=== PATIENT | male | born 1950 | race Two or more races ===

== ENCOUNTER 2017-05-24 18:36 | Inpatient (IN) | payer OTHER ==
[~2017-05-24] VITALS: Ht 165.1 cm; Wt 86.2 kg
[2017-05-24 20:50] VITALS: BP 155/63
--- NOTE | 2017-05-24 20:50 | NUR ---
RN OPENING NOTES: ADMITTED 66 YO MALE PATIENT DIRECT ADMIT FROM [facility] ED FOR PNEUMONIA. WHEN PATIENT ARRIVED VIA GURNEY PATIENT IS AWAKE AND ALERT ON O2 VIA NC AT 2LPM, TOLERATED WELL, NOT IN APPARENT DISTRESS. PER EMT'S REPORT PATIENT WAS SINUS RHYTHM BACK IN ED BUT WAS AFIB WHEN ASSESSED. CURRENTLY AFIB ON THE MONITOR WITH ERRATIC HEART RATE, WOULD GO FROM 115 UPTO 130 BUT DOES NOT SUSTAIN. NO COMPLAINTS OF CHEST PAIN AT THIS TIME NOR OTHER RELATED SYMPTOMS, ALTHOUGH PATIENT REPORTS TO BE SHORT OF BREATH DURING EXERTION. PATIENT DENIES OTHER HEART CONDITION EXCEPT FOR HYPERTENSION. PATIENT ON PERITONEAL DIALYSIS DAILY AND WOULD LIKE TO DO THIS NOW, PATIENT AND FAMILY INDEPENDENT WITH OWN PERITONEAL DIALYSIS SET UP. IV ACCESS ON RAC G18 INTACT. NO SKIN ISSUES NOTED EXCEPT FOR BILATERAL ARM MULTIPLE BRUISING. DR HESS COVERSTITCH BINDER INFORMED ABOUT PATIENT AND ABOUT CHANGE IN HEART RHYTHM. INFORMED MD PATIENT RECEIVED ROCEPHIN BACK IN [facility] ED. AWAITING FOR ADMITTING ORDERS AT THIS TIME. SAFETY MEASURES ENSURED. CONTINUOUSLY MONITORED PATIENT.
[2017-05-24 21:14] VITALS: BP 155/63
--- NOTE | 2017-05-24 21:30 | NUR ---
RN NOTES: PATIENT UNABLE TO RECALL ALL MEDS TAKEN AT HOME ONLY RECALLS A FEW AND DOES NOT RECALL DOSAGE. FOUND NOTED FROM [facility] VERIFIED BY AND FILED THEM ON MED RECON. ASKED IF SOMEONE CAN BRING THE LIST OF HIS MEDICATION IN THE MORNING TO MAKE SURE ALL MEDS ARE DOCUMENTED PROPERLY. PER SHE WILL TRY TO HAVE SOMEONE BRING IT. WHEN ASKED ABOUT ADVANCED DIRECTIVES VERBALIZES THAT HE PROBABLY WANTS INFORMATION ABOUT THIS. FOR FRONT END ARCHITECT CONSULT IN AM.
[2017-05-24] MEDS ORDERED: ATOR40TA PO (21:57)
[2017-05-24] MEDS ORDERED: ATENOLOL (21:57)
[2017-05-24] MEDS ORDERED: CLON0.1T PO (21:57)
[2017-05-24] MEDS ORDERED: DOXAZOSIN (21:57)
[2017-05-24] MEDS ORDERED: FOLI0.8T2 PO (21:57)
[2017-05-24] MEDS ORDERED: AMLODIPINE (21:57)
--- NOTE | 2017-05-24 22:00 | NUR ---
RN NOTES: NON ADMIN ZITHROMAX AND ROCEPHIN WAS GIVEN IN [facility] ED.
[2017-05-25] VITALS: BP 149/77
[2017-05-25] MEDS ORDERED: COLC0.6C PO (00:01)
[2017-05-25] MEDS ORDERED: ATEN50TA PO (00:01)
[2017-05-25] MEDS ORDERED: DOXA4TAB19 PO (00:01)
[2017-05-25] MEDS ORDERED: AMLO10TA4 PO (00:01)
[2017-05-25] MEDS ORDERED: ALLO100T PO (00:01)
--- NOTE | 2017-05-25 01:30 | NUR ---
RN NOTES: ASKED EPIC MD WAX BALL KNOCK OUT WORKER DR HESS REGARDING BLOOD CULTURES IF NECESSARY TO ORER PER PNEUMONIA CORE MEASURES. PER MD NO NEED PATIENT HAS BEEN AFEBRILE. NOTED. MD SEEN AND EXAMINED PATIENT.
[2017-05-25 04:00] VITALS: BP 145/73
[2017-05-25] MEDS ORDERED: CLON0.1T PO (06:24)
[2017-05-25] MEDS ORDERED: ALLO300T2 PO (06:25)
[2017-05-25 06:28] LABS: BASOPHILS % (AUTO) 0.3 % (0.0-2.0); HEMATOCRIT 27 % (39-51); HEMOGLOBIN 9.1 g/dL (13.5-17.5); LYMPHOCYTES # (AUTO) 0.8 /CMM (0.8-4.8); LYMPHOCYTES % (AUTO) 13.9 % (20.0-44.0); MEAN CORPUSCULAR HEMOGLOBIN 32 PG (26.0-33.0); MEAN CORPUSCULAR HGB CONC 33 g/dl (31.0-36.0); MEAN CORPUSCULAR VOLUME 95 fL (80-96); MONOCYTES # (AUTO) 0.1 /CMM (0.1-1.30); MONOCYTES % (AUTO) 1.7 % (2.0-12.0); NEUTROPHILS # (AUTO) 4.8 /CMM (1.8-8.9); NEUTROPHILS % (AUTO) 84.1 % (43.0-81.0); PLATELET COUNT (AUTO) 165 /CMM (150-450); RDW COEFFICIENT OF VARIATION 18.7 (11.5-15.0); RED BLOOD CELL COUNT(AUTO) 2.88 MIL/uL (4.5-6.0); WHITE BLOOD COUNT (AUTO) 5.7 K/uL (4.3-11.0)
--- NOTE | 2017-05-25 06:49 | NUR ---
RN CLOSING NOTES: PATIENT NOT IN DISTRESS ON BED, REMAINED AFIB CONTROLLED ON MONITOR. PERITONEAL DIALYSIS STILL ONGOING. PATIENT COMPLAINS OF CONSTIPATION FOR 3 DAYS. OFFERED MOM, BUT PATIENT WAS AFRAID IT MIGHT BE TOO STRONG FOR HIM (DESPITE EDUCATION) ALTHOUGH HE VERBALIZED THAT COLACE DOES NOT WORK FOR HIM, AND MENTIONED HE HAS USED MIRALAX AND WORKED WELL WITH HIM BEFORE. TO ENDORSE TO AM SHIFT RN TO OBTAIN ORDERS FROM AM MD DURING ROUNDS. NO COMPLAINTS OF PAIN. SAFETY MEASURES ENSURED ALTHOUGH PATIENT DOES NOT WANT OEN OF HIS UPPER SIDE RAILS DOWN IT IS IMPEDING HIS VIEW OF HIS PERITONEAL DIALYSIS ON HIS LEFT. PATIENT VERY ALERT AND INDEPENDENT, SAYS HE'S GOING TO BE FINE DESPITE INSTRUCTIONS FOR SAFETY MEASURES. ENDORSED TO AM SHIFT RN.
[2017-05-25 06:51] LABS: THYROID STIMULATING HORMONE 1.134 uIU/mL (0.358-3.74)
[2017-05-25 06:56] LABS: MAGNESIUM 2.3 mg/dL (1.8-2.4); PHOSPHORUS 4.8 mg/dL (2.5-4.9); POTASSIUM 4.7 mmol/L (3.5-5.1)
--- NOTE | 2017-05-25 07:37 | NUR ---
RN INITIAL NOTE PT A/O X4. NC 2 L NO C/O SOB.TELE A-FIB 90'S. IV RAC NS @ 75 ML/HR. ALL SAFETY MEASURES IN PLACE WILL CONTINUE TO MONITOR. @ BEDSIDE.
[2017-05-25 07:46] LABS: CREATININE 9.2 mg/dL (0.6-1.3)
[2017-05-25 08:00] VITALS: BP_SYST 146; BP_SYST 148; BP_DIAS 88
[2017-05-25] MEDS ORDERED: SEVE800T8 PO (09:43)
--- NOTE | 2017-05-25 11:29 | NUR ---
DR. BRICEÑO CONTACTED TO UPDATE MED RECON LIST. AWAITING UPDATE.
[2017-05-25 12:00] VITALS: BP 145/78
--- NOTE | 2017-05-25 12:01 | NUR ---
CALLED DR. BRICEÑO PT ASKING FOR MIRALAX NO BM IN [address] BRICEÑO ORDERED 17G DAILY.
[2017-05-25 16:00] VITALS: BP 144/74
--- NOTE | 2017-05-25 19:05 | NUR ---
RN INITIAL NOTES RECEIVED PATIENT IN BED, AWAKE AND ALERT X4 WITH AT BEDSIDE. PATIENT CURRENTLY CONNECTED TO HIS PERITONEAL DIALYSIS SETUP, ASSESSED PATIENT'S PERITONEAL HD CATH SITE ON MEDIAL LEFT ABDOMINAL AREA, DRESSING INTACT, NO DISCHARGE NOTED, PATIENT WITH NO DISTRESS AND PAIN. PATIENT ON 2LPM OF O2 VIA NC, RESPIRATION IS EVEN AND UNLABORED, ADMITS TO SOB WITH EXERTION ONLY. AFIB CONTROLLED ON TELE WITH HR IN THE 80s. R AC G18, FLUSHED AND PATENT, NO SIGNS OF INFILTRATION. PATIENT'S NEEDS ANTICIPATED AND MET. SAFETY AND COMFORT ENSURED. BED IN LOW AND LOCKED POSITION. CALL LIGHT IN REACH. WILL MONITOR.
[2017-05-25 20:00] VITALS: BP 137/70
--- NOTE | 2017-05-25 22:30 | NUR ---
RN NOTES PATIENT WITH ONGOING PERITONEAL DIALYSIS AT BEDSIDE. ACCORDING TO THE PATIENT, IT IS ALL SET UP ON THE MACHINE AND IT IS ARRANGED THAT THERE WILL BE AN INPUT OF 8L AND AN OUTPUT OF 2L. NOTED. PATIENT WELL KNOWLEDGEABLE OF HIS DIALYSIS ARRANGEMENT. NEEDS ANTICIPATED AND MET AT THIS TIME. CALL LIGHT IN REACH.
[2017-05-26] VITALS: BP 128/69
[2017-05-26 04:00] VITALS: BP 129/80
--- NOTE | 2017-05-26 06:31 | NUR ---
RN CLOSING NOTES PATIENT WITH NO ACUTE DISTRESS AND NO CHANGE IN CONDITION OBSERVED OVERNIGHT. PATIENT'S NEEDS ANTICIPATED AND MET. SAFETY AND COMFORT ENSURED. BED IN LOW AND LOCKED POSITION. CALL LIGHT IN REACH. WILL ENDORSE ACCORDINGLY FOR CONTINUITY OF CARE.
--- NOTE | 2017-05-26 07:15 | NUR ---
RN NOTES RECV'D REPOR FROM JUAN RN. NURSE ASSESSOR&OX3. AMBULATORY. HERE FOR PNA SOB. RA 95% AT PRESENT NON LABORED RESP. AFIB 80-90 (TENORMIN). RAC 18G SL. LLQ PERITONEAL DIALYSIS SITE. PT INDEPENDENT IN PD CARE AND NIGHTLY DIALYSIS. RECEIVING ZITHROMAX AND CEFEPIME FOR COMM AQUIRED PNA. MRSA SCREENING PDG. AT BEDSIDE SUPPORTIVE. NO SKIN BREAKDOWN. GOOD APPETITE. BM YESTERDAY. VOIDS URINAL. BUN/ CR ELEVATED. NEPHRO CONSULT PENDING. BED IN LOW LOCKED POSITION. SIDE RAILS UP X 2. CALL LIGHT IN REACH. WILL CONT TO MONITOR CLOSELY.
[2017-05-26 08:00] VITALS: BP 121/79
[2017-05-26 09:30] LABS: BASOPHILS % (AUTO) 0.4 % (0.0-2.0); EOSINOPHILS # (AUTO) 0.2 /CMM (0.0-0.7); EOSINOPHILS % (AUTO) 1.8 % (0.0-6.0); HEMATOCRIT 26 % (39-51); HEMOGLOBIN 8.2 g/dL (13.5-17.5); LYMPHOCYTES # (AUTO) 1.5 /CMM (0.8-4.8); LYMPHOCYTES % (AUTO) 17.9 % (20.0-44.0); MEAN CORPUSCULAR HEMOGLOBIN 31 PG (26.0-33.0); MEAN CORPUSCULAR HGB CONC 32 g/dl (31.0-36.0); MEAN CORPUSCULAR VOLUME 96 fL (80-96); MONOCYTES # (AUTO) 0.9 /CMM (0.1-1.30); MONOCYTES % (AUTO) 10.2 % (2.0-12.0); NEUTROPHILS % (AUTO) 69.7 % (43.0-81.0); PLATELET COUNT (AUTO) 176 /CMM (150-450); RDW COEFFICIENT OF VARIATION 18.2 (11.5-15.0); RED BLOOD CELL COUNT(AUTO) 2.68 MIL/uL (4.5-6.0); WHITE BLOOD COUNT (AUTO) 8.6 K/uL (4.3-11.0)
[2017-05-26 10:04] LABS: CALCIUM, SERUM 8.1 mg/dL (8.5-10.1); CREATININE 9.5 mg/dL (0.6-1.3); POTASSIUM 4.6 mmol/L (3.5-5.1)
[2017-05-26 12:00] VITALS: BP 143/75
[2017-05-26 17:35] VITALS: BP 129/72
--- NOTE | 2017-05-26 17:57 | NUR ---
RN NOTES ASSOCIATE PROFESSOR OF HISTORY&OX3. AMBULATORY. DENIES SOB. 2LNC 99% AT PRESENT NON LABORED RESP. AFIB 80-90 (TENORMIN). RAC 18G SL. LLQ PERITONEAL DIALYSIS SITE NO COMPLICATIONS. PT INDEPENDENT IN PD CARE AND NIGHTLY DIALYSIS. AFEBRILE. MRSA SCREENING PDG. AT BEDSIDE SUPPORTIVE. NO SKIN BREAKDOWN. GOOD APPETITE. BM YESTERDAY. VOIDS URINAL. BUN/ CR ELEVATED. NEPHRO CONSULT TODAY ANNIE ADDED. BED IN LOW LOCKED POSITION. SIDE RAILS UP X 2. CALL LIGHT IN REACH. WILL CONT TO MONITOR CLOSELY.
--- NOTE | 2017-05-26 19:30 | NUR ---
SHAPER SET UP OPERATOR INITIAL NOTE PT RECEIVED IN BED WITH AT BEDSIDE. A/O X4 AND ABLE TO MAKE NEEDS KNOWN. BREATHING EVEN, REGULAR AND UNLABORED ON ROOM AIR WITH 96% SATURATION. TELE- SINUS URSULA/ SINUS RHYTHM 62. IV RAC CLEAN, DRY, INTACT AND FLUSHING WELL. PERITONEAL DIALYSIS CATHETER IN PLACE AND CLEAN. BED IN LOWEST POSITION AND LOCKED IN PLACE. CALL LIGHT WITHIN EASY REACH AT ALL TIMES. WILL CONTINUE TO MONITOR.
[2017-05-26 20:00] VITALS: BP 141/76
[2017-05-27] VITALS: BP 102/55
[2017-05-27 04:00] VITALS: BP 155/62
--- NOTE | 2017-05-27 07:10 | NUR ---
RN INITIAL NOTES: REC'D PT AWAKE ON BED, HOB ELEVATED, NOT IN ANY DISTRESS, A/O X4, ABLE TO MAKE NEEDS KNOWN. ON O2 AT 2LPM/NC, NO SOB. ON TELEMONITOR, SR W/ HR 66 BPM. PT HAS R AC G18, SL, FLUSHED, PATENT & INTACT W/ NO S/SX OF INFECTION/ INFILTRATION NOTED. HAS PERITONEAL DIALYSIS CATHETER PN LLQ ABDOMEN IN PLACE. AT BEDSIDE. PROVIDED COMFORT & SAFETY MEASURES. BED KEPT LOW & IN LOCKED POS. CALL LIGHT PLACED W/IN REACH. WILL CONTINUE TO MONITOR AND ATTEND NEEDS.
[2017-05-27 07:15] LABS: CALCIUM, SERUM 7.8 mg/dL (8.5-10.1); POTASSIUM 4.7 mmol/L (3.5-5.1)
[2017-05-27 07:16] LABS: CREATININE 9.3 mg/dL (0.6-1.3)
--- NOTE | 2017-05-27 07:18 | NUR ---
OB GYN PHYSICIAN ASSISTANT CLOSING NOTE PT REMAINED STABLE DURING SHIFT. NO ACUTE DISTRESS NOTED. AT BEDSIDE ALL NIGHT. NO C/O PAIN OR DISCOMFORT NOTED. ALL NEEDS ATTENDED TO PROMPTLY. TELE- SINUS URSULA MOST OF THE NIGHT. ALL SAFETY MEASURES IN PLACE. WILL ENDORSE TO NEXT SHIFT FOR CONTINUITY OF CARE.
[2017-05-27 08:00] VITALS: BP_SYST 161; BP_SYST 94; BP_DIAS 47; BP_DIAS 71
--- NOTE | 2017-05-27 08:32 | NUR ---
RN NOTES: PT ALREADY TOOK HIS OWN RENVELA MEDICATION. HE VERBALIZED THAT HE IS TAKING 2400MG OF IT TID W/ EVERY MEALS. EXPLAINED TO HIM THE CURRENT ORDERS AND ASKED HIM IF RN CAN GIVE IT TO THE PHARMACY TO PREVENT MEDICATION ERROR (DOUBLE DOSING). PER PT HE WANTED IT AT BEDSIDE. WILL INFORM THE MD. Addendum: 05/27/17 at 1253 by RAHUL TITUS RN ADDENDUM: PER DR. PADMINI MOURA TO INCREASE DOSAGE OF RENVELA TO 2400 MG TID WM. PT AND MADE AWARE AND AGREED TO TAKE MEDICATION FROM PHARMACY.
[2017-05-27 12:00] VITALS: BP_SYST 103; BP_SYST 148; BP_DIAS 64; BP_DIAS 74
[2017-05-27 16:00] VITALS: BP 141/58
--- NOTE | 2017-05-27 19:00 | NUR ---
RN CLOSING NOTES: NO ACUTE CHANGES NOTED W/IN SHIFT. PT TOLERATED O2 AT 2LPM/NC, NO SOB. ON TELEMONITOR, STILL SR W/ EPISODE OF SB WHILE ASLEEP. R AC G18, SL, KEPT PATENT & INTACT W/ NO S/SX OF INFECTION/ INFILTRATION NOTED. PERITONEAL DIALYSIS CATHETER ON LLQ ABDOMEN KEPT IN PLACE AND INTACT W/ NO S/SX OF INFECTION, PERITONEAL DIALYSIS ONGOING C/O PATIENT. AT BEDSIDE. KEPT WELL RESTED. NEEDS ATTENDED. BED KEPT LOW & IN LOCKED POS. CALL LIGHT PLACED W/IN REACH. ENDORSED TO PM RN FOR COLBY.
--- NOTE | 2017-05-27 19:30 | NUR ---
IN HOME CAREGIVER INITIAL NOTE RECEIVED PT IN BED WHILE PERITONEAL DIALYSIS IS STILL GOING ON. AT BEDSIDE. A/O X4 AND ABLE TO VERBALIZE NEEDS. ON 2L OF O2 AND SATURATING WELL. BREATHING EVEN AND UNLABORED. TELE- SINUS RHYTHM 60'S. IV RAC #18 CLEAN, INTACT,PATENT AND FLUSHING WELL. LEFT LOWER QUAD DIALYSIS CATH IN PLACE AND CLEAN. CALL LIGHT WITHIN REACH. WILL CONTINUE TO MONITOR.
[2017-05-27 20:00] VITALS: BP 129/72
[2017-05-28] VITALS: BP 137/72
[2017-05-28 04:00] VITALS: BP 103/61
[2017-05-28 06:22] LABS: BASOPHILS # (AUTO) 0.1 /CMM (0.0-0.2); BASOPHILS % (AUTO) 0.7 % (0.0-2.0); EOSINOPHILS # (AUTO) 0.3 /CMM (0.0-0.7); EOSINOPHILS % (AUTO) 3.2 % (0.0-6.0); HEMATOCRIT 24 % (39-51); HEMOGLOBIN 7.9 g/dL (13.5-17.5); LYMPHOCYTES # (AUTO) 1.2 /CMM (0.8-4.8); LYMPHOCYTES % (AUTO) 13.7 % (20.0-44.0); MEAN CORPUSCULAR HEMOGLOBIN 32 PG (26.0-33.0); MEAN CORPUSCULAR HGB CONC 33 g/dl (31.0-36.0); MEAN CORPUSCULAR VOLUME 96 fL (80-96); MONOCYTES # (AUTO) 0.8 /CMM (0.1-1.30); MONOCYTES % (AUTO) 9.2 % (2.0-12.0); NEUTROPHILS # (AUTO) 6.5 /CMM (1.8-8.9); NEUTROPHILS % (AUTO) 73.2 % (43.0-81.0); PLATELET COUNT (AUTO) 153 /CMM (150-450); RDW COEFFICIENT OF VARIATION 18.1 (11.5-15.0); RED BLOOD CELL COUNT(AUTO) 2.48 MIL/uL (4.5-6.0); WHITE BLOOD COUNT (AUTO) 8.9 K/uL (4.3-11.0)
[2017-05-28 06:47] LABS: CALCIUM, SERUM 7.5 mg/dL (8.5-10.1); MAGNESIUM 2.3 mg/dL (1.8-2.4); PHOSPHORUS 6.2 mg/dL (2.5-4.9); POTASSIUM 4.3 mmol/L (3.5-5.1)
[2017-05-28 06:50] LABS: CREATININE 8.9 mg/dL (0.6-1.3)
--- NOTE | 2017-05-28 07:20 | NUR ---
EMERGENCY PREPAREDNESS MANAGER OPENING RECEIVED PATIENT A/OX4 DENIES SOB, DIFFICULTY BREATHING OR PAIN. AT BEDSIDE. PATIENT ON 2LPM NC TOLERATING WELL. TELE NSR AT THIS TIME. ALL NEEDS IN REACH, BED LOWERED AND LOCKED, RAILS UPX3 FOR SAFETY AND WILL ROUND Q2H OR LESS PER NEEDS.
--- NOTE | 2017-05-28 07:40 | NUR ---
RN CLOSING NOTE PT REMAINS IN NO ACUTE DISTRESS IN BED. PT DID NOT HAVE ANY SIGNIFICANT CHANGE IN CONDITION DURING SHIFT. REMAINS AT BEDSIDE. PT COMPLAINED OF CONSTIPATION AND PT GIVEN MIRALAX. PT HAD A SUCCESSFUL BM POST DIRECTOR IMMUNOLOGY. ALL NEEDS ATTENDED TO, ALL SAFETY MEASURES IN PLACE, AND PT KEPT CLEAN AND DRY. WILL ENDORSE TO AM RN FOR COLBY.
[2017-05-28 08:00] VITALS: BP 140/75
[2017-05-28 12:00] VITALS: BP 128/68
--- NOTE | 2017-05-28 14:40 | NUR ---
director security risk management notes per doctor Cedric Hernandez, order 10,000 units Epogen subcut once
[2017-05-28 16:00] VITALS: BP_SYST 117; BP_DIAS 117; BP_DIAS 69
--- NOTE | 2017-05-28 16:46 | NUR ---
MECHANICAL SHOP LABORER NOTES CALLED PHARMACY TO INQUIRE ABOUT EPOGEN
--- NOTE | 2017-05-28 18:43 | NUR ---
SUPPORT DIRECTOR CLOSING PATIENT STABLE ALL DUE MEDS GIVEN AND ALL NEEDS MET. PD RUNNING AT PATIENT BEDSIDE SELF ADMINISTERED BY PATIENT. ALL NEEDS IN REACH, BED LOWERED AND LOCKED, RAILS UPX3 FOR SAFETY. CARE WILL BE ENDORSED TO RN FOR COLBY
--- NOTE | 2017-05-28 19:15 | NUR ---
RN INITIAL NOTES RECEIVED PATIENT IN BED, AWAKE AND ALERT. PATIENT WITH VISITORS AT BEDSIDE. PATIENT CURRENTLY HOOKED ON HIS PERITONEAL DIALYSIS, SITE AT [facility], SELF ADMINISTERED. PATIENT WITH NO C/O PAIN AND DISCOMFORT AT THIS TIME. ON 2LPM OF O2 VIA NC. SOB WITH EXERTION STILL. SR ON TELE WITH HR OF 69. R AC G18, FLUSHED AND PATENT, NO SIGNS OF INFILTRATION. PATIENT'S NEEDS ANTICIPATED AND MET. SAFETY AND COMFORT ENSURED. BED IN LOW AND LOCKED POSITION. CALL LIGHT IN REACH. WILL MONITOR.
[2017-05-28 20:00] VITALS: BP 137/71
--- NOTE | 2017-05-28 22:30 | NUR ---
RN NOTES ATB ADMINISTERED ORDERED. PATIENT'S IV ON SL. CONTINUOUS ON PERITONEAL DIALYSIS. NO C/O PAIN AND DISCOMFORT. NO DISTRESS.
[2017-05-29] VITALS: BP 134/83
--- NOTE | 2017-05-29 01:02 | NUR ---
RN NOTES PATIENT STILL ON PERITONEAL DIALYSIS, CYCLE 4 OF 4 AT THIS TIME. PATIENT WITH NO C/O PAIN AND DISCOMFORT AT THIS TIME. PATIENT'S NEEDS ANTICIPATED AND MET. SAFETY AND COMFORT ENSURED. BED IN LOW AND LOCKED POSITION. CALL LIGHT IN REACH.
[2017-05-29 04:00] VITALS: BP 133/69
--- NOTE | 2017-05-29 06:30 | NUR ---
RN CLOSING NOTES PATIENT WITH NO ACUTE DISTRESS. NEEDS ANTICIPATED AND MET. PERITONEAL DIALYSIS COMPLETED WITH 2L OF FLUID DRAINED. PATIENT ADMITS TO FEELING BLOATED AND CONSTIPATED. OFFERED MOM, HOWEVER PATIENT WANTS IT AT A LATER TIME HE WANTS TO REST FOR NOW. PERITONEAL DIALYSIS SITE NOTED TO BE CLEAN AND DRY, INTACT. R FOREARM PIV, INTACT, ON SL. SAFETY AND COMFORT ENSURED. BED IN LOW AND LOCKED POSITION. CALL LIGHT IN REACH. WILL ENDORSE ACCORDINGLY FOR CONTINUITY OF CARE. Addendum: 05/29/17 at 0633 by LILLIE GONZALEZ RN REMAINS SR AT 66.
[2017-05-29 07:34] LABS: BASOPHILS % (AUTO) 0.4 % (0.0-2.0); EOSINOPHILS # (AUTO) 0.3 /CMM (0.0-0.7); EOSINOPHILS % (AUTO) 2.6 % (0.0-6.0); HEMATOCRIT 24 % (39-51); HEMOGLOBIN 8.1 g/dL (13.5-17.5); LYMPHOCYTES # (AUTO) 1.1 /CMM (0.8-4.8); LYMPHOCYTES % (AUTO) 11.4 % (20.0-44.0); MEAN CORPUSCULAR HEMOGLOBIN 31 PG (26.0-33.0); MEAN CORPUSCULAR HGB CONC 33 g/dl (31.0-36.0); MEAN CORPUSCULAR VOLUME 95 fL (80-96); MONOCYTES # (AUTO) 0.7 /CMM (0.1-1.30); MONOCYTES % (AUTO) 7.7 % (2.0-12.0); NEUTROPHILS # (AUTO) 7.5 /CMM (1.8-8.9); NEUTROPHILS % (AUTO) 77.9 % (43.0-81.0); PLATELET COUNT (AUTO) 157 /CMM (150-450); RDW COEFFICIENT OF VARIATION 17.9 (11.5-15.0); RED BLOOD CELL COUNT(AUTO) 2.57 MIL/uL (4.5-6.0); WHITE BLOOD COUNT (AUTO) 9.6 K/uL (4.3-11.0)
--- NOTE | 2017-05-29 07:37 | NUR ---
RN NOTES RECEIVED PT FROM [facility] CUTTER IN STABLE CONDITION. A&OX3, ON 2L NASAL CANNULA NO SOB OR DISTRESS NOTED AT THIS TIME. SR ON THE TELE MONITOR HR IN THE 60S. RFA 22G IV SITE DRY AND INTACT. BED LOCKED AND IN LOWEST POSITION, CALL LIGHT WITHIN REACH, SIDE RAILS UPX3, WILL CONT TO MONITOR.
[2017-05-29 07:59] LABS: CALCIUM, SERUM 7.6 mg/dL (8.5-10.1); PHOSPHORUS 5.1 mg/dL (2.5-4.9)
[2017-05-29 08:00] VITALS: BP 154/83
[2017-05-29 08:12] LABS: CREATININE 9.1 mg/dL (0.6-1.3)
[2017-05-29] MEDS ORDERED: DOXY100C2 PO (11:31)
[2017-05-29 16:00] VITALS: BP 129/67
--- NOTE | 2017-05-29 18:48 | NUR ---
RN NOTES PT RESTING IN BED NO SOB OR DISTRESS NOTED. NO SIGNIFICANT CHANGES THROUGHOUT THE SHIFT, IN STABLE CONDITION THROUGHOUT THE SHIFT. PT WILL BE DISCHARGED TOMORROW AM PER PADMINI KUMARI. BED LOCKED AND IN LOWEST POSITION, CALL LIGHT WITHIN REACH, SIDE RAILS UPX3, WILL ENDORSE TO ONCOMING SHIFT.
[2017-05-29 20:00] VITALS: BP 133/78
[2017-05-30 04:00] VITALS: BP 128/76
--- NOTE | 2017-05-30 06:46 | NUR ---
END OF SHIFT SUMMERY: PATIENT IS A&O X 4. ON 2L O2,SATURATING WELL.VSS. DENIES PAIN.NO EPISODES OF N/V. PLAN TO D/C TODAY. NO ACUTE RESPIRATORY/CARDIAC DISTRESS NOTED. WILL ENDORSE POC TO THE NEXT NURSE TO CONTINUE THE CARE.
[2017-05-30 07:32] LABS: BASOPHILS % (AUTO) 0.4 % (0.0-2.0); EOSINOPHILS # (AUTO) 0.2 /CMM (0.0-0.7); EOSINOPHILS % (AUTO) 2.2 % (0.0-6.0); HEMATOCRIT 24 % (39-51); HEMOGLOBIN 7.9 g/dL (13.5-17.5); LYMPHOCYTES % (AUTO) 12.4 % (20.0-44.0); MEAN CORPUSCULAR HEMOGLOBIN 31 PG (26.0-33.0); MEAN CORPUSCULAR HGB CONC 33 g/dl (31.0-36.0); MEAN CORPUSCULAR VOLUME 95 fL (80-96); MONOCYTES # (AUTO) 0.7 /CMM (0.1-1.30); MONOCYTES % (AUTO) 8.9 % (2.0-12.0); NEUTROPHILS % (AUTO) 76.1 % (43.0-81.0); PLATELET COUNT (AUTO) 162 /CMM (150-450); RDW COEFFICIENT OF VARIATION 18.3 (11.5-15.0); RED BLOOD CELL COUNT(AUTO) 2.52 MIL/uL (4.5-6.0); WHITE BLOOD COUNT (AUTO) 7.9 K/uL (4.3-11.0)
[2017-05-30 07:54] LABS: CALCIUM, SERUM 7.6 mg/dL (8.5-10.1); MAGNESIUM 2.2 mg/dL (1.8-2.4); PHOSPHORUS 5.8 mg/dL (2.5-4.9)
[2017-05-30 07:56] LABS: CREATININE 9.2 mg/dL (0.6-1.3)
[2017-05-30 08:00] VITALS: BP 149/73
--- NOTE | 2017-05-30 08:20 | NUR ---
ms rn initial notes Received patient in bed, awake, head of bed elevated no SOB or distress noted. On room air and tolerated well. IV intact and patent. Alert and oriented x 4, verbally responsive and able to make needs known. Will continue to monitor accordingly.
[2017-05-30 10:00] VITALS: BP 149/73
[2017-05-30 12:40] VITALS: BP 132/61
--- NOTE | 2017-05-30 13:50 | NUR ---
ms rn outpatient surgery notes discharge instructions given to patient and able to understand. Prescription given and copied and filed in the chart. Called preferred pharmacy and fax prescription to process right away as patient requested. Skin is intact. No complaint of pain or discomfort. No SOB or distress noted. Discontinued IV and pressured applied to prevent bleeding. Flu and pneumonia vaccine refused explained the risk and benefits and able to understand. Per patient he will receive it elsewhere. Patient left the hospital in stable condition accompanied by son and via wheelchair. MD and charge nurse aware. Vital signs checked and recorded.
== END 2017-05-30 14:00 | disposition home or self-care (01) | DRG 193 ==
LOC: TELE1 20:31 → MEDSG1 05-29 09:10
DX: J15.9 Unspecified bacterial pneumonia (principal); N18.6 End stage renal disease; D68.59 Other primary thrombophilia; I48.91 Unspecified atrial fibrillation; I12.0 Hypertensive chronic kidney disease with stage 5 chronic kidney disease or end stage renal disease; Z99.2 Dependence on renal dialysis; D63.8 Anemia in other chronic diseases classified elsewhere; Z79.899 Other long term (current) drug therapy
CPT/HCPCS: 36415; 71010-TC; 80048-TC; 80061-TC; 83735-TC; 84100-TC; 84443-TC; 85025-TC; 87081-TC; 90935-TC; J0456; J0696; J0885; J7030; J7050; J7060